=== PATIENT | female | born 1995 | race Caucasian/White ===

== ENCOUNTER 2018-02-28 21:00 | Emergency (ER) | payer OTHER ==
[~2018-02-28] VITALS: Ht 152.4 cm; Wt 48.0 kg
[2018-02-28 21:10] VITALS: TEMP 36.7; Ht 152.4 cm; Wt 48.0 kg
[2018-02-28] MEDS ORDERED: LIDOCAINE HCL 2% VISC SOLN 20 ML UDC PO STA (21:20)
[2018-02-28] MEDS ORDERED: SODIUM CHLORIDE 0.9% 1000ML 1,000 ML IV STA (21:20)
[2018-02-28] MEDS ORDERED: ALUMINUM/MAGNESIUM SUSP 30 ML UDC PO STA (21:20)
[2018-02-28] MEDS ORDERED: LORAZEPAM 0.5 MG TAB SL STA (21:25)
--- NOTE | 2018-02-28 21:27 | EMERGENCY ROOM VISIT NOTE ---
History Report prepared by Ronna: Fredo Das Under the Supervision of: Dr. Marcelina Rockwell M.D. First contact with patient: 21:05 Stated Complaint: CHEST PAIN, SHOULDER & BACK PAIN History of Present Illness The patient is a 22 year old female who presents to the Emergency Room with complaints of constant chest pressure beginning a few hours ago. The patient states it feels like her chest is caving in and tight. She reports she just finished eating a large meal of rice, beans, and chicken when her symptoms started. The patient notes deep breathing causes her chest discomfort to worsen. She states she has also been experiencing upper back pain and left shoulder pain for the past three to four days. The patient reports she has been taking ibuprofen for the past few days for her back pain. She notes she has a history of a pinched nerve and back pain from dancing. The patient states movement makes her back pain worse, and it feels like she cannot keep her shoulder stable. 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 The patient notes she smokes a lot of marijuana. She denies recent trips and smoking cigarettes. Source of History: patient Onset: a few hours ago Position: chest Quality: pressure Timing: constant Modifying Factors (Worsening): breathing (deep) Note: Associated symptoms: upper back pain and left shoulder pain Review of Systems See HPI for pertinent positives & negatives. A total of 10 systems reviewed and were otherwise negative. Past Medical & Surgical Medical Problems: (1) Back pain Family History Patient reports no known family medical history. Social History Drug Use: marijuana Marital Status: single Housing Status: lives with roommate Occupation Status: [employer] student Current/Historical Medications No Active Prescriptions or Reported Meds Allergies Coded Allergies: No Known Allergies (Unverified , 02/28/18) Physical Exam Vital Signs Date Time Temp Pulse Resp B/P (MAP) Pulse Ox O2 Delivery O2 Flow Rate FiO2 02/28/18 23:20 94 20 110/67 100 02/28/18 22:12 104 21 105/73 100 Room Air 02/28/18 21:11 96 02/28/18 21:10 36.7 88 26 138/85 100 Room Air Physical Exam Vital signs reviewed. General: Anxious-appearing 22 year old female, in mild distress. HEENT: No scleral icterus, PERRLA, neck supple. Atraumatic. Cardiovascular: Tachycardic rate and regular rhythm, no extra sounds. Pulmonary: Clear to auscultation bilaterally, normal work of breathing. Abdomen: Soft, nontender, nondistended, positive bowel sounds. Musculoskeletal: Atraumatic, no peripheral edema. Neurologic: Patient awake alert and oriented x 3, full strength in all 4 extremities. Cranial nerves 2 through 12 grossly intact. Skin: Warm, dry, no rash Medical Decision & Procedures ER Provider Diagnostic Interpretation: X-ray results as stated below per interpretation by me and the radiologist: CHEST ONE VIEW PORTABLE CLINICAL HISTORY: Chest pain. COMPARISON STUDY: No previous studies for comparison. FINDINGS: Lung volumes are normal. No pneumothorax or pleural effusion is noted. There is no consolidation. Cardiac size is normal. Mediastinal contours are normal. There is no evidence for pulmonary edema. IMPRESSION: No acute cardiopulmonary findings. Electronically signed by: Bud Mitchell M.D. 02/28/2018 9:51 PM Dictated Date/Time: 02/28/2018 9:50 PM Laboratory Results 02/28/18 21:34 Red Blood Count 4.44, Mean Corpuscular Volume 91.9, Mean Corpuscular Hemoglobin 32.0, Mean Corpuscular Hemoglobin Concent 34.8, Mean Platelet Volume 9.0, Neutrophils (%) (Auto) 63.6, Lymphocytes (%) (Auto) 28.6, Monocytes (%) (Auto) 5.6, Eosinophils (%) (Auto) 1.0, Basophils (%) (Auto) 0.9, Neutrophils # (Auto) 4.32, Lymphocytes # (Auto) 1.94, Monocytes # (Auto) 0.38, Eosinophils # (Auto) 0.07, Basophils # (Auto) 0.06 02/28/18 21:34 Test 02/28/18 21:34 02/28/18 21:40 White Blood Count 6.79 K/uL (4.8-10.8) Red Blood Count 4.44 M/uL (4.2-5.4) Hemoglobin 14.2 g/dL (12.0-16.0) Hematocrit 40.8 % (37-47) Mean Corpuscular Volume 91.9 fL (80-100) Mean Corpuscular Hemoglobin 32.0 pg (25-34) Mean Corpuscular Hemoglobin Concent 34.8 g/dl (32-36) Platelet Count 345 K/uL (130-400) Mean Platelet Volume 9.0 fL (7.4-10.4) Neutrophils (%) (Auto) 63.6 % Lymphocytes (%) (Auto) 28.6 % Monocytes (%) (Auto) 5.6 % Eosinophils (%) (Auto) 1.0 % Basophils (%) (Auto) 0.9 % Neutrophils # (Auto) 4.32 K/uL (1.4-6.5) Lymphocytes # (Auto) 1.94 K/uL (1.2-3.4) Monocytes # (Auto) 0.38 K/uL (0.11-0.59) Eosinophils # (Auto) 0.07 K/uL (0-0.5) Basophils # (Auto) 0.06 K/uL (0-0.2) RDW Standard Deviation 43.3 fL (36.4-46.3) RDW Coefficient of Variation 12.9 % (11.5-14.5) Immature Granulocyte % (Auto) 0.3 % Immature Granulocyte # (Auto) 0.02 K/uL (0.00-0.02) Prothrombin Time 10.7 SECONDS (9.0-12.0) Prothromb Time International Ratio 1.0 (0.9-1.1) Activated Partial Thromboplast Time 23.1 SECONDS (21.0-31.0) Partial Thromboplastin Ratio 0.9 Anion Gap 7.0 mmol/L (3-11) Est Creatinine Clear Calc Drug Dose 77.7 ml/min Estimated GFR () 117.7 Estimated GFR (Non- 101.5 BUN/Creatinine Ratio 15.4 (10-20) Calcium Level 9.0 mg/dl (8.5-10.1) Total Bilirubin 0.7 mg/dl (0.2-1) Direct Bilirubin 0.1 mg/dl (0-0.2) Aspartate Amino Transf (AST/SGOT) 22 U/L (15-37) Alanine Aminotransferase (ALT/SGPT) 18 U/L (12-78) Alkaline Phosphatase 69 U/L (45-117) Total Protein 8.3 gm/dl (6.4-8.2) Albumin 4.4 gm/dl (3.4-5.0) Thyroid Stimulating Hormone (TSH) 0.732 uIu/ml (0.300-4.500) Bedside D-Dimer 124 ng/mlFEU (0-450) Bedside Troponin I < 0.030 ng/ml (0-0.045) Laboratory results per my review. Medications Administered Medications (Trade) Dose Ordered Sig/Christiana Route Start Time Stop Time Status Last Admin Dose Admin Sodium Chloride 1,000 ml @ 999 mls/hr Q1H1M STAT IV 02/28/18 21:20 02/28/18 22:20 DC 02/28/18 22:13 999 MLS/HR Lidocaine HCl (Viscous Lidocaine 2% Soln) 10 ml NOW STAT PO 02/28/18 21:20 02/28/18 21:24 DC 02/28/18 22:14 10 ML Al Hydroxide/Mg Hydroxide (Maalox Susp) 30 ml NOW STAT PO 02/28/18 21:20 02/28/18 21:24 DC 02/28/18 22:14 30 ML Lorazepam (Ativan Tab) 0.5 mg NOW STAT SL 02/28/18 21:25 02/28/18 21:26 DC 02/28/18 22:14 0.5 MG Potassium Chloride (Klor-Con M10) 40 meq NOW STAT PO 02/28/18 22:28 02/28/18 22:29 DC 02/28/18 22:33 40 MEQ Famotidine (Pepcid Tab) 20 mg NOW ONCE PO 02/28/18 22:30 02/28/18 22:31 DC 02/28/18 22:34 20 MG ECG Per My Interpretation Indication: chest pain Rate (beats per minute): 117 Rhythm: sinus tachycardia Findings: no acute ischemic change, no ectopy, other (No ST elevation or depression.) ED Course 2118: Past medical records reviewed. The patient was evaluated in room C10. A complete history and physical examination was performed. 2119: Ordered Maalox Susp 30ml PO, Lidocaine HCl 10ml PO, Sodium Chloride 1000 ml @ 999 mls/hr IV 2124: Ordered Lorazepam 0.5mg SL 2225: Upon reevaluation, the patient appeared to have improvement of her symptoms. I discussed findings with her. She verbalized agreement of the treatment plan. The patient will be discharged home after receiving medication. She asked I call her parents. 2227: Ordered Potassium Chloride 40meq PO 2229: Ordered Famotidine 20mg PO 2231: I discussed the patient's case with her mother. She is understanding of the patient's visit. Medical Decision Differential diagnoses includes acute coronary syndrome, pulmonary embolus, aortic dissection, musculoskeletal pain, pneumonia, pleural effusion, pneumothorax, gastritis, peptic ulcer disease. This patient was evaluated and appeared to be in mild distress. Patient is anxious and tearful. Found to be tachycardic. Patient was hydrated with normal saline solution. EKG reveals a sinus tachycardia. Laboratory work is fairly unrevealing, including d-dimer. Chest x-ray is clear. Patient did receive 0.5 mg of oral Ativan as well as 4 mg of IV Zofran. On reevaluation she was much improved and reassured regarding her findings. I did speak with the patient's mother as she had requested. Patient will avoid marijuana and excessive alcohol/stimulants. She will drink plenty of clear fluids. She will follow-up with her physician or [facility] for reevaluation if symptoms persist. She will return to the ER for worsening of symptoms or any medical concerns. Medication Reconcilliation Current Medication List: was personally reviewed by me Blood Pressure Screening Patient's blood pressure: Normal blood pressure Blood pressure disposition: Did not require urgent referral Impression Primary Impression: GERD (gastroesophageal reflux disease) Additional Impression: Acute anxiety Scribe Attestation The scribe's documentation has been prepared under my direction and personally reviewed by me in its entirety. I confirm that the note above accurately reflects all work, treatment, procedures, and medical decision making performed by me. Departure Information Dispostion Home / Self-Care Prescriptions No Active Prescriptions or Reported Meds Referrals No Doctor, Assigned (PCP) Forms HOME CARE DOCUMENTATION FORM, IMPORTANT VISIT INFORMATION Patient Instructions My [facility] Additional Instructions Diagnosis: GERD, anxiety Pepcid 20 mg twice daily as needed. Stop the ibuprofen. Minimize greasy, spicy foods. Minimize alcohol, soda, coffee. Drink plenty of water. Follow-up with [facility] or your primary care physician for further management. Return to the ER for worsening of symptoms or any medical concerns. Problem Qualifiers
--- NOTE | 2018-02-28 21:52 | DIAGNOSTIC IMAGING REPORT ---
CHEST ONE VIEW PORTABLE CLINICAL HISTORY: Chest pain. COMPARISON STUDY: No previous studies for comparison. FINDINGS: Lung volumes are normal. No pneumothorax or pleural effusion is noted. There is no consolidation. Cardiac size is normal. Mediastinal contours are normal. There is no evidence for pulmonary edema. IMPRESSION: No acute cardiopulmonary findings. Electronically signed by: Bud Mitchell M.D. 02/28/2018 9:51 PM Dictated Date/Time: 02/28/2018 9:50 PM
[2018-02-28 22:04] LABS: BASO % 0.9 %; BASO ABS # 0.06 K/uL (0-0.2); EOS ABS # 0.07 K/uL (0-0.5); HEMATOCRIT 40.8 % (37-47); HEMOGLOBIN 14.2 g/dL (12.0-16.0); IG# 0.02 K/uL (0.00-0.02); LYMPH % 28.6 %; LYMPH ABS # 1.94 K/uL (1.2-3.4); MEAN CELL VOLUME 91.9 fL (80-100); MEAN CORPUSCULAR HGB CONC 34.8 g/dl (32-36); MONO % 5.6 %; MONO ABS # 0.38 K/uL (0.11-0.59); NEUT % 63.6 %; NEUT ABS # 4.32 K/uL (1.4-6.5); PLATELET COUNT 345 K/uL (130-400); RED CELL DISTRIBUTION WIDTH CV 12.9 % (11.5-14.5); RED CELL DISTRIBUTION WIDTH SD 43.3 fL (36.4-46.3); WHITE BLOOD COUNT 6.79 K/uL (4.8-10.8)
[2018-02-28 22:07] LABS: ALBUMIN 4.4 gm/dl (3.4-5.0); CREATININE 0.83 mg/dl (0.60-1.20); POTASSIUM 3.2 mmol/L (3.5-5.1)
[2018-02-28 22:15] LABS: PTT PATIENT 23.1 SECONDS (21.0-31.0)
[2018-02-28 22:17] LABS: TOTAL PROTEIN 8.3 gm/dl (6.4-8.2)
[2018-02-28] MEDS ORDERED: POTASSIUM CHLORIDE 10 MEQ TABCR PO STA (22:28)
[2018-02-28] MEDS ORDERED: FAMOTIDINE 20 MG TAB PO ONE (22:30)
[2018-02-28 23:20] VITALS: BP 110/67; PULSE 94; O2SAT 100
== END 2018-02-28 23:21 | disposition home or self-care (01) ==
LOC: EDBD 21:00 → C.EDC 21:03
DX: K21.9 Gastro-esophageal reflux disease without esophagitis (principal); F41.9 Anxiety disorder, unspecified; R00.0 Tachycardia, unspecified; M54.9 Dorsalgia, unspecified; M25.512 Pain in left shoulder